=== PATIENT | female | born 1945 | race Caucasian/White ===

== ENCOUNTER → 2016-11-24 | Outpatient (CLI) | payer OTHER | LOC: BMCIMAGING 07:56 | PROVIDERS: ATTEND Internal Medicine | DX: Z12.31 Encounter for screening mammogram for malignant neoplasm of breast (principal) | CPT/HCPCS: G0202 ==

== ENCOUNTER → 2017-04-23 | Outpatient (CLI) | payer OTHER | LOC: BMCIMAGING 10:11 | PROVIDERS: ATTEND Internal Medicine | DX: Z13.820 Encounter for screening for osteoporosis (principal); M81.0 Age-related osteoporosis without current pathological fracture ==

== ENCOUNTER → 2017-12-14 | Outpatient (CLI) | payer OTHER | LOC: BMCIMAGING 13:16 | PROVIDERS: ATTEND Internal Medicine | DX: Z12.31 Encounter for screening mammogram for malignant neoplasm of breast (principal) ==

== ENCOUNTER 2017-12-25 05:46 | Observation (INO) | payer OTHER ==
[2017-12-25] MEDS ORDERED: ceFAZolin 2 GM/DEXTROSE 100 ML IV ONE (06:04)
[2017-12-25] MEDS ORDERED: ACETAMINOPHEN 500 MG TAB PO ONE (06:04)
[2017-12-25] MEDS ORDERED: LR 1,000 ML IV ONE (06:05)
[2017-12-25] MEDS ORDERED: LIDOCAINE 1% 2 ML INJ ID PRN (06:05)
--- NOTE | 2017-12-25 06:38 | PDHPUP ---
History & Physical Update H&P update statement: This history and physical update is based on an assessment of the patient which was completed after admission or registration (within 24 hours), but prior to the surgery/procedure. H&P update: no change in patient's condition since H&P completed
[2017-12-25] MEDS ORDERED: BUPIVACAINE 0.25% 30 ML SDV ONE (06:45)
[2017-12-25] MEDS ORDERED: THROMBIN (BOVINE) 5,000 UNIT VIAL TP ONE (06:45)
[2017-12-25] MEDS ORDERED: CHLORHEXIDINE GLUC HIBICLENS 118 ML BTL TP ONE (06:45)
[2017-12-25] MEDS ORDERED: BACITRACIN 50,000 UNITS/10 ML SYR IRR ONE (06:46)
[2017-12-25] MEDS ORDERED: EPINEPHrine 1 MG/ML INJ ONE (06:46)
--- NOTE | 2017-12-25 07:00 | PDANEPAE ---
ANE History of Present Illness cervical stenosis ANE Past Medical History - Cardiovascular History Hx Hypertension: Yes Hx Arrhythmias: No Hx Chest Pain: No Hx Coronary Artery / Peripheral Vascular Disease: No Hx CHF / Valvular Disease: No Hx Palpitations: No - Pulmonary History Hx COPD: No Hx Asthma/Reactive Airway Disease: No Hx Recent Upper Respiratory Infection: No Hx Oxygen in Use at Home: No Hx Sleep Apnea: No Sleep Apnea Screening Result - Last Documented: Negative Pulmonary History Comment: SEVERE SEASONAL ALLERGIES - Neurologic History Hx Cerebrovascular Accident: No Hx Seizures: No Hx Dementia: No Neurologic History Comment: POSSIBLE TIA 2015 - Endocrine History Hx Diabetes: No - Renal History Hx Renal Disorders: No - Liver History Hx Hepatic Disorders: No - Neurological & Psychiatric Hx Hx Neurological and Psychiatric Disorders: No - Cancer History Hx Cancer: No - Congenital Disorder History Hx Congenital Disorders: No - GI History Hx Gastrointestinal Disorders: Yes Gastrointestinal History Comment: GERD - Other Health History Other Health History: HEMOCHROMATOSIS. PE 2007 - Chronic Pain History Chronic Pain: Yes - Surgical History Prior Surgeries: JULY 2012 L4/L5 FUSION. 2007 TKA RIGHT. 2005 TKA LEFT. 2001 HYSTERECTOMY. BILATERAL KNEE SCOPE 1999 ANE Review of Systems Review of systems is: negative Review of Systems: - Exercise capacity Exercise capacity: >=4 METS METS (RN): 5 METS ANE Patient History - Allergies Allergies/Adverse Reactions: morphine Allergy (Mild, Verified 07/25/12 17:39) ITCHY SEASONAL ALLERGIES Allergy (Intermediate, Uncoded 07/25/12 17:39) SOB, ITCHY EYES, NASAL CONGESTION, COUGH - Home Medications Home Medications: Aspirin [Aspirin 81mg (OTC)] 81 mg PO DAILY 07/24/12 [Last Taken 12/19/17] Calcium Carbonate [Oyster Shell Calcium 500 mg (OTC)] 500 mg PO DAILY 07/24/12 [ Last Taken 12/19/17] Cetirizine [ZyrTEC 10 mg (RX)] 10 mg PO DAILY 07/24/12 [Last Taken 12/24/17] Cholecalciferol Vit D3 [Vitamin D3 1000 units (OTC)] 1,000 units PO DAILY [Last Taken 12/19/17] Cyanocobalamin [Vitamin B12 1000 MCG (OTC)] 1,000 mcg PO DAILY 07/24/12 [Last Taken 12/24/17] Diltiazem HCl [Diltiazem 24Hr Cd] 300 mg PO DAILY 07/24/12 [Last Taken 12/24/17] Fluticasone Nasal [Flonase Nasal [place] (RX)] 1 sprays NASAL DAILY 07/24/12 [ Last Taken 12/24/17] Montelukast Sodium [Singulair 10 mg (RX)] 10 mg PO DAILY 07/24/12 [Last Taken ] Pantoprazole Sodium [Protonix 40mg (RX)] 40 mg PO DAILY 07/24/12 [Last Taken Unknown] Flexographic Press Helper Completed 07/24/12 07/24/12 [Last Taken 07/24/12] Zolpidem Tartrate [Ambien 10 mg] 10 mg PO HS PRN 07/24/12 [Last Taken Unknown] celeCOXIB [Celebrex] 50 mg PO DAILY 07/24/12 [Last Taken 07/23/12] ALPRAZolam [Xanax 0.5 MG (RX)] 0.5 mg PO PRN PRN 07/25/12 [Last Taken 12/25/17] Amlodipine Besylate 12/19/17 [Last Taken 12/24/17] Atorvastatin Calcium 12/19/17 [Last Taken 12/25/17] - NPO status NPO Status: no food or drink >8 hours NPO Since - Liquids (Date): 12/24/17 NPO Since - Liquids (Time): 22:00 NPO Since - Solids (Date): 12/24/17 NPO Since - Solids (Time): 20:00 - Anes Hx Anes Hx: no prior problems - Smoking Hx Smoking Status: Former smoker - Alcohol Use Alcohol Use: Heavy (10/wk) - Family Anes Hx Family Hx Anesthesia Complications: NA ANE Labs/Vital Signs - Vital Signs Vital Signs: reviewed preoperatively; see RN documention for details Blood Pressure: 136/76 Heart Rate: 81 Respiratory Rate: 16 O2 Sat (%): 91 Height: 162.56 cm Weight: 77.111 kg ANE Physical Exam - Airway Neck exam: FROM Mallampati Score: Class 2 Mouth exam: normal dental/mouth exam - Pulmonary Pulmonary: no respiratory distress - Cardiovascular Cardiovascular: regular rate and rhythym - ASA Status ASA Status: II ANE Anesthesia Plan Anesthesia Plan: general endotracheal anesthesia
[2017-12-25] MEDS ORDERED: LIDOCAINE 2% 2 ML INJ ONE (07:11)
[2017-12-25] MEDS ORDERED: PROPOFOL/EMULSION 500 MG/50 ML BOTTLE IV ONE (07:12)
[2017-12-25] MEDS ORDERED: ROCURONIUM 50 MG/5 ML VIAL ONE (07:12)
[2017-12-25] MEDS ORDERED: PROPOFOL 200 MG/20 ML VIAL ONE (07:12)
[2017-12-25] MEDS ORDERED: fentaNYL 100 MCG/2 ML INJ ONE ×3 (07:12→10:15)
[2017-12-25] MEDS ORDERED: REMIFENTANIL HCL 1 MG VIAL ONE (07:12)
[2017-12-25] MEDS ORDERED: MIDAZOLAM 2 MG/2 ML VIAL ONE (07:18)
[2017-12-25] MEDS ORDERED: DEXAMETHASONE 4 MG/ML VIAL ONE ×3 (07:36)
[2017-12-25] MEDS ORDERED: SURGIFLO MATRIX KIT WITH THROMBIN 8 ML TP ONE (09:11)
[2017-12-25] MEDS ORDERED: ONDANSETRON 4 MG/2 ML VIAL ONE (09:31)
[2017-12-25] MEDS ORDERED: SUGAMMADEX SODIUM 200 MG/2 ML VIAL IVP ONE (09:31)
[2017-12-25] MEDS ORDERED: ALBUTEROL 3 ML DEYVIAL IH PRN (10:03)
[2017-12-25] MEDS ORDERED: NALOXONE HCL 0.4 MG/ML INJ IVP PRN (10:03)
[2017-12-25] MEDS ORDERED: ACETAMINOPHEN 500 MG TAB PO PRN (10:03)
[2017-12-25] MEDS ORDERED: ONDANSETRON 4 MG/2 ML VIAL IVP PRN ×2 (10:03→10:13)
[2017-12-25] MEDS ORDERED: DIAZEPAM 5 MG/ML 1 ML SYR IVP PRN (10:03)
[2017-12-25] MEDS ORDERED: PROMETHAZINE HCL 25 MG/ML INJ IVP PRN (10:03)
--- NOTE | 2017-12-25 10:03 | POSTANESTH ---
Post Anesthetic Evaluation Cardiovascular Status: Normal, Stable Respiratory Status: Normal, Stable Level of Consciousness/Mental Status: Can Participate in Eval Pain Control: Adequate, Prn Tx Ordered Nausea/Vomiting Control: Adequate, Prn Tx Ordered Complications Possibly Related to Anesthesia: None Noted
[2017-12-25] MEDS ORDERED: BISACODYL 10 MG SUPP PR PRN (10:13)
[2017-12-25] MEDS ORDERED: METHOCARBAMOL 750 MG TAB PO PRN (10:13)
[2017-12-25] MEDS ORDERED: diphenhydrAMINE 25 MG CAP PO PRN (10:13)
[2017-12-25] MEDS ORDERED: ONDANSETRON DISINTEGRATING 4 MG TAB PO PRN (10:13)
[2017-12-25] MEDS ORDERED: MAGNESIUM HYDROXIDE 30 ML UDCUP PO PRN (10:13)
[2017-12-25] MEDS ORDERED: oxyCODONE IR 5 MG TAB PO PRN (10:13)
[2017-12-25] MEDS ORDERED: LACTULOSE 20 GM/30 ML UDCUP PO PRN (10:13)
[2017-12-25] MEDS ORDERED: HYDROmorphONE/DILAUDID 1 MG/ML INJ ONE ×2 (10:15→10:56)
[2017-12-25] MEDS: fentaNYL 100 MCG/2 ML INJ IVP PRN ×2 (10:16→10:21)
[2017-12-25] MEDS: HYDROmorphONE/DILAUDID 1 MG/ML INJ IVP PRN ×4 (10:21→11:00)
--- NOTE | 2017-12-25 10:21 | POSTOPPROG ---
Post Op Note Date of Operation: 12/25/17 Surgeon: Gabo Luu Small Machine Bindery Operator: Darryl Umaña PAC Anesthesiologist: Jesus Watts MD Anesthesia: GET(General Endotracheal) Pre-op Diagnosis: Cervical DjD/Stenosis Post-op Diagnosis: same Indication: Neck and bilateral arm pain Procedure: C5-7 ACDF Findings: Severe DJD, stenosis Inf/Abcess present in the surg proc area at time of surgery?: No EBL: 50-100 Total fluids administered: 400ml Complications: none Specimen(s): none
--- NOTE | 2017-12-25 10:23 | GOP ---
DATE OF OPERATION: 12/25/2017 SURGEON: Gabo Luu MD [employer] MECHANIC: Darryl Umaña. ANESTHESIA: General endotracheal. PREOPERATIVE DIAGNOSIS: Severe multilevel cervical spondylosis and foraminal stenosis with intractab le neck pain and right greater the left upper extremity radiculopathies. Failed conservative care. POSTOPERATIVE DIAGNOSIS: Severe multilevel cervical spondylosis and foraminal stenosis with intracta ble neck pain and right greater the left upper extremity radiculopathies. Failed conservative care. PROCEDURE PERFORMED: Mini open exposure for complete C5-6 and C6-7 anterior cervical diskectomy and arthrodesis with 2 structural PEEK interbody spacers and local autograft. Partial C6 vertebral corpe ctomy. Placement of a 43 mm CastleLoc-P L and K anterior cervical plate from C5 through C7. Use of intraoperative microscopy and fluoroscopy. FINDINGS: ESTIMATED BLOOD LOSS: 50 cc. INDICATIONS: The patient is a 72-year-old woman with intractable neck pain and right greater than le ft upper extremity radicular symptoms. 2 severe multilevel cervical degenerative joint disease with spondylosis and spinal stenosis and severe neural foraminal encroachment. She has failed extensive c onservative care and presents now for surgical decompression and stabilization. DESCRIPTION OF PROCEDURE: After informed consent was obtained, the patient was taken to the operatin g room and placed in the supine position with the head in the halter retractor system. The anterior cervical region was prepped and draped in a sterile fashion. After fluoroscopic localization of milagros ect levels, the subcutaneous and intramuscular tissues were infiltrated with local anesthesia. A hor izontal linear incision was then created at the level of the C6 vertebral body in a skin crease. Thi s was carried through the platysmal layer using monopolar electrocautery and carried in the avascular plane between the sternocleidomastoid and carotid sheath laterally, and the strap muscles, trachea, and esophagus medially down to the prevertebral fascia, which was carefully incised with Metzenbaum s cissors. The very large osteophytes were identified and carefully removed and harvested for local au tograft. The Rake distraction pins were carefully inserted first at C5-6 and then at C6-7, during which time distraction was created across the interspaces, and complete diskectomies were performed w ith preparation of endplates and removal of posterior longitudinal ligament at each level. Bilateral foraminotomies were performed. There were very large posteriorly protruding osteophytes extending b oth into the canal and into the neural foramen. An extensive decompression was performed bilaterally at the C6 and C7 neural foramen as well as the central canal. There was also significant irregulari ty in the endplates which required an extensive amount of drilling including both the superior and in ferior endplates of C6. There was approximately 50% of the vertebral body drilled away. That was nec essary to adequately decompress the central canal and neural foramen bilaterally. This resulted in p artial C6 vertebral corpectomy. Following adequate decompression, meticulous hemostasis was achieved and the interspaces were serially packed with appropriately sized structural PEEK allograft packed w ith local autograft in the center. These measured 9 and 12 mm in height at the C5-6 and C6-7 levels, respectfully. Following this, the distraction was removed and an appropriately sized 43 mm CastleLo c-P L and K anterior cervical plate was then placed and secured from C5 through C7 using self-drillin g screws under fluoroscopic image guidance. Note that the C6 and C7 levels were very difficult to vi sualize given the patient's anatomy and we used multiple views with the C-arm. Complete AP lateral a nd obliques and the bottom screws appeared to be in good position, but I was not 100% sure but this w as the best that we could do and I felt that it was in the best interest of the patient to leave the screws intact and obtain x-rays in Radiology postoperatively later today. Following this, the remain ing locally harvested allograft was placed in the anterior hole of the plate. A drain was placed. T he subcutaneous and intramuscular tissues were re-infiltrated with local anesthesia, and the wound wa s closed in a layered fashion using interrupted Vicryl sutures followed by Steri-Strips on the skin. COMPLICATIONS: None. DISPOSITION: The patient is currently in the process of being repositioned for extubation. /[id number]/MODL
--- NOTE | 2017-12-25 10:33 | SOAPPROG ---
SOAP Progress Note Assessment/Plan: Assessment: POST OP CHECK: Doing well sp C5-7 ACDF complains of aching neck pain in PACU Plan: CPM in PACU transfer to floor for observation needs xrays today of Cspine to evaluate hardware OLGA to bulb suction hard collar at all times 12/25/17 10:30 Subjective: awake, comfortable, complains of neck "achiness" Objective: Vital Signs Temp Pulse Resp BP Pulse Ox 36 C 81 17 126/75 H 93 12/25/17 09:56 12/25/17 07:03 12/25/17 10:16 12/25/17 10:16 12/25/17 10:16 Neuro: Awake, oriented x 3 follows commands CRAWFORD, sens +LT Vitals: BP 117/67 HR 75 O2 93% Nasal cannula 2 liters ICD10 Worksheet Patient Problems: Problems Problem Status Onset Cervical radiculopathy due to degenerative joint disease of spine Acute - ICD10 Problem Qualifiers (1) Cervical radiculopathy due to degenerative joint disease of spine
[2017-12-25] MEDS ORDERED: DIAZEPAM 5 MG/ML 1 ML SYR ONE (10:39)
[2017-12-25] MEDS ORDERED: HYDROCODONE/APAP 5/325 TAB ONE ×2 (11:05→11:48)
[2017-12-25] MEDS: HYDROCODONE/APAP 5/325 TAB PO PRN ×2 (11:07→11:48)
[2017-12-25] MEDS ORDERED: CEFUROXIME 1,500 MG in NS 50 ML IV SCH (14:00)
--- NOTE | 2017-12-25 15:18 | PDHOMEO2F ---
Home Oxygen Face to Face Home Orders: I certify that a physician or a nurse practitioner or physician's internet marketing assistant has had a [id number] encounter with this patient on the date of this order due to the diagnosis listed, which relates to the primary reason the patient requires home oxygen. Alternative treatments have been tried, or considered, and deemed ineffective. It is anticipated that supplemental oxygen will result in improvement with treatment. Home oxygen qualifying diagnosis: post op hypoxemia SpO2 on room air (%): 86% Frequency of home oxygen needed: continuous Home oxygen liters per minute: 2 Home oxygen delivery device: nasal cannula Concentrator: No E-tanks for mobility and back up: Yes If ordering portable O2, is the patient mobile in the home?: Yes I certify that, based on these findings, the home oxygen is medically necessary for this patient for the following length of time. Length of time home oxygen needed: 99 years
[2017-12-25] MEDS ORDERED: POLYETHYLENE GLYCOL 3350 17 GM PKT PO SCH (16:00)
[2017-12-25 16:08] VITALS: BP 117/63
[2017-12-25] MEDS ORDERED: FAMOTIDINE 20 MG TAB PO SCH (21:00)
[2017-12-25] MEDS ORDERED: SENNOSIDES/DOCUSATE SODIUM TAB PO SCH (21:00)
[2017-12-26] MEDS ORDERED: ENOXAPARIN 40 MG/0.4 ML SYR SC SCH (09:00)
== END 2017-12-25 16:34 | disposition home or self-care (01) ==
LOC: FSGY 05:46 → F3E 10:14 → F2N 12:22
PROVIDERS: ADMIT Neurological Surgery; ATTEND Neurological Surgery
DX: M48.02 Spinal stenosis, cervical region (principal); M43.02 Spondylolysis, cervical region; M50.10 Cervical disc disorder with radiculopathy, unspecified cervical region; M50.30 Other cervical disc degeneration, unspecified cervical region; I10 Essential (primary) hypertension; K21.9 Gastro-esophageal reflux disease without esophagitis; Z87.891 Personal history of nicotine dependence; Z96.653 Presence of artificial knee joint, bilateral; Z98.1 Arthrodesis status
CPT/HCPCS: 22551; 22552; 72040; 76001; C1713; J0171; J0690; J0697; J1100; J1170; J2250; J2405; J2704; J3010; J3360